=== PATIENT | male | born 1935 | race Caucasian/White ===

== ENCOUNTER 2021-04-08 09:43 | Day surgery (SDC) | payer MEDICARE ==
[2021-04-07 15:11] LABS: BASOPHILS % (AUTO) 0.2 % (0-1); EOSINOPHILS # (AUTO) 0.1 X10'3 (0-0.9); EOSINOPHILS % (AUTO) 1.1 % (0-6); HEMATOCRIT 41.8 % (42.0-52.0); LYMPHOCYTES # (AUTO) 1.1 X10'3 (1.1-4.8); LYMPHOCYTES % (AUTO) 19.6 % (21-51); MEAN CORPUSCULAR HEMOGLOBIN 32.9 PG (27.0-31.0); MEAN CORPUSCULAR HGB CONC 33.6 g/dL (33.0-36.5); MEAN CORPUSCULAR VOLUME 97.9 FL (78-98); MEAN PLATELET VOLUME 8.1 FL (7.4-10.4); MONOCYTES # (AUTO) 0.5 X10'3 (0-0.9); MONOCYTES % (AUTO) 8.4 % (2-12); NEUTROPHILS # (AUTO) 3.9 X10'3 (1.8-7.7); NEUTROPHILS % (AUTO) 70.7 % (42-75); PLATELET COUNT 188 X10'3 (140-440); RED BLOOD COUNT 4.27 X10'6 (4.70-6.10); RED CELL DISTRIBUTION WIDTH 14.3 % (11.5-14.5); WHITE BLOOD COUNT 5.5 X10'3 (4.5-11.0)
[2021-04-07 15:22] LABS: APTT 29 SECONDS (22-32)
[2021-04-07 15:34] LABS: ALBUMIN 3.8 G/DL (3.4-5.0); ANION GAP 7 (8-16); BLOOD UREA NITROGEN 16 MG/DL (7-18); BUN/CREATININE RATIO 14.4 (5.4-32.0); CALCIUM 9.3 MG/DL (8.5-10.1); CHLORIDE 104 MMOL/L (99-107); CREATININE 1.11 MG/DL (0.60-1.10); GLUCOSE 131 MG/DL (70-104); POTASSIUM 4.9 MMOL/L (3.5-5.1); SODIUM 141 MMOL/L (135-145); TOTAL CARBON DIOXIDE 29.8 MMOL/L (24-32); eGFR 63 ML/MIN
[2021-04-08] VITALS (11 sets, daily range): BP systolic 105–146; BP diastolic 56–100
[~2021-04-08] VITALS: Ht 177.8 cm; Wt 86.3 kg
[2021-04-08] MEDS ORDERED: LIDOcaine/PRILOcaine 5gm cream TP ONE (10:10)
[2021-04-08] MEDS ORDERED: normal saline 1,000 ML IV SCH (10:10)
[2021-04-08] MEDS ORDERED: diphenhydrAMINE 25mg capsule PO PRN (10:10)
[2021-04-08] MEDS ORDERED: WARF-55 PO (10:14)
[2021-04-08] MEDS ORDERED: FLO0.4C (10:14)
[2021-04-08] MEDS ORDERED: ATOR10TA70 PO (10:14)
[2021-04-08] MEDS ORDERED: WARF-65 PO (10:14)
[2021-04-08] MEDS ORDERED: METO-411 PO (10:14)
[2021-04-08] MEDS ORDERED: LISI10TA27 PO (10:14)
[2021-04-08] MEDS ORDERED: FEXO180T94 PO (10:17)
[2021-04-08] MEDS ORDERED: CHOL20002 PO (10:17)
[2021-04-08] MEDS ORDERED: CALC600T35 (10:17)
[2021-04-08] MEDS ORDERED: LORazepam 0.5 MG tablet PO PRN (11:15)
[2021-04-08] MEDS ORDERED: midazolam 1 mg/ML 2ml injection ONE (12:26)
[2021-04-08] MEDS ORDERED: verapamil 2.5 mg/ml inj IV ONE (12:26)
[2021-04-08] MEDS ORDERED: heparin 1,000unit/ml 10ml vial 10 ML ONE ×2 (12:26→14:29)
[2021-04-08] MEDS ORDERED: fentaNYL/PF 50MCG/1 ML 2ML syringe ONE (12:26)
[2021-04-08] MEDS ORDERED: nitroGLYCERIN-Tridil 50MG/D5W 250 ML IV ONE (12:26)
[2021-04-08] MEDS ORDERED: iohexol 350MG/ML 100ml bottle IV ONE ×3 (12:27→14:10)
[2021-04-08] MEDS ORDERED: LIDOcaine 1% (10mg/ml)w/preservative injection 20ml MDV ONE (12:27)
[2021-04-08] MEDS ORDERED: iohexol 350 MG/ML 50ML vial IV ONE (12:27)
[2021-04-08] MEDS ORDERED: clopidogrel 300mg tablet ONE (14:22)
[2021-04-08 14:23] LABS: ISTAT HGB ART 12.9 g/dl (14.0-18.0); ISTAT Hct ART 38 %PCV (42-52); ISTAT O2 SATURATION ARTERIAL 96 % (95-98); ISTAT SOURCE ART
[2021-04-08] MEDS ORDERED: normal saline 1000ml 1,000 ML IV SCH (15:05)
[2021-04-08 15:49] LABS: ISTAT Hct MIX 39 %PCV (42-52); ISTAT O2 SATURATION MIX VENOUS 70 % (60-80); ISTAT SOURCE VEN
== END 2021-04-08 20:03 | disposition home or self-care (01) ==
LOC: SSTAY O 09:43
PROVIDERS: ATTEND Internal Medicine Cardiovascular Disease
DX: R94.39 Abnormal result of other cardiovascular function study (principal); I25.10 Atherosclerotic heart disease of native coronary artery without angina pectoris; I08.1 Rheumatic disorders of both mitral and tricuspid valves; I10 Essential (primary) hypertension; I48.21 Permanent atrial fibrillation; E78.49 Other hyperlipidemia; Z79.899 Other long term (current) drug therapy; Z79.01 Long term (current) use of anticoagulants; Z86.73 Personal history of transient ischemic attack (TIA), and cerebral infarction without residual deficits; Z96.643 Presence of artificial hip joint, bilateral; Z98.890 Other specified postprocedural states; Z87.891 Personal history of nicotine dependence; Z82.49 Family history of ischemic heart disease and other diseases of the circulatory system; Z82.3 Family history of stroke
CPT/HCPCS: 36415; 76937; 80048; 82803; 85014; 85025; 85347; 85610; 85730; 93005; 93460; 99152; 99153; C1725; C1751; C1769; C1874; C1894; C9600; J1644; J2250; J3010; J3490; J7030; Q0163; Q9967; A4620; A5120; A6258